=== PATIENT | female | born 1945 | race Caucasian/White ===

== ENCOUNTER 2022-10-24 12:22 | Emergency (ER) | payer OTHER ==
[~2022-10-24] VITALS: Ht 160 cm; Wt 86.2 kg
[2022-10-24] MEDS ORDERED: NOXIFOL-D32500 UNIT (13:05)
[2022-10-24] MEDS ORDERED: TOPROL XL25 M1 (13:05)
[2022-10-24] MEDS ORDERED: OMEPRAZOLE20 M2 (13:06)
[2022-10-24] MEDS ORDERED: HYDROCHLOROTHIA25 MG (13:06)
== END 2022-10-24 16:37 | disposition home or self-care (01) ==
LOC: ER 12:22
DX: M25.572 Pain in left ankle and joints of left foot (principal); S82.492A Other fracture of shaft of left fibula, initial encounter for closed fracture; Y93.11 Activity, swimming; Y93.89 Activity, other specified; Y92.34 Swimming pool (public) as the place of occurrence of the external cause; I10 Essential (primary) hypertension